=== PATIENT | female | born 1995 | race Caucasian/White ===

== ENCOUNTER 2017-03-27 19:52 | Emergency (ER) | payer OTHER ==
--- NOTE | 2017-03-27 20:24 | EDPHY ---
H & P Stated Complaint: FEELING OUT OF IT ANXIETY DOES NOT WANT TO HURT SELF, FEARFUL Time Seen by Provider: 03/27/17 20:23 HPI/ROS: CHIEF COMPLAINT: Anxiety, intermittent episodes of confusion HISTORY OF PRESENT ILLNESS: The patient has a history of bipolar mood disorder and depression currently maintained with Topamax and an SSRI. She is brought to the emergency department by her boyfriend with a chief complaint of abnormal behavior and confusion episodically over the past 6 months. The patient's boyfriend reports the patient states that she is having dream hallucinations with mild amnesia. The patient reportedly has several 2nd episodes where she stares into space and is not interactive. There has been no history of tonic- clonic seizure activity. There has been no history of incontinence. Patient is a daily marijuana user. She is also under the care of a therapist and psychiatrist. The patient's medications are prescribed by her primary care provider. The patient does endorse symptoms of anxiety earlier today. The patient does attribute her symptoms today to missing her Topamax and SSRI yesterday. She denies any suicidal or homicidal ideation. She denies additional acute complaints. REVIEW OF SYSTEMS: A comprehensive 10 point review of systems is otherwise negative aside from elements mentioned in the history of present illness. Source: Patient Exam Limitations: No limitations - Personal History LMP (Females 10-55): 1-7 Days Ago Current Tetanus/Diphtheria Vaccine: Yes Current Tetanus Diphtheria and Acellular Pertussis (TDAP): Yes - Medical/Surgical History Hx Asthma: No Hx Chronic Respiratory Disease: No Hx Diabetes: No Hx Cardiac Disease: No Hx Renal Disease: No Hx Cirrhosis: No Hx Alcoholism: No Hx HIV/AIDS: No Hx Splenectomy or Spleen Trauma: No Other PMH: prev concussion, endometriosis, wisdom teeth, bipolar, depression. - Social History Smoking Status: Never smoked - Physical Exam Exam: General Appearance: Alert, no distress Eyes: Pupils equal and round no pallor or injection ENT, Mouth: Mucous membranes moist Respiratory: There are no retractions, lungs are clear to auscultation Cardiovascular: Regular rate and rhythm Gastrointestinal: Abdomen is soft and nontender, no masses, bowel sounds normal Neurological: A&O, normal motor function, normal sensory exam, normal cranial nerves Skin: Warm and dry, no rashes Musculoskeletal: Neck is supple nontender Extremities: symmetrical, full range of motion Psychiatric: Patient is oriented X 3, there is no agitation, no suicidal ideation or homicidal ideation Constitutional: Initial Vital Signs Temperature (C) 37.1 C 03/27/17 19:56 Heart Rate 94 03/27/17 19:56 Respiratory Rate 18 03/27/17 19:56 Blood Pressure 111/57 L 03/27/17 19:56 O2 Sat (%) 97 03/27/17 19:56 O2 Delivery Mode Room Air Allergies/Adverse Reactions: Sulfa (Sulfonamide Antibiotics) Allergy (Severe, Verified 03/27/17 19:59) Hives Home Medications: Medication Instructions Recorded Topamax 07/02/16 Zoloft 25mg (*) 07/02/16 Medical Decision Making ED Course/Re-evaluation: The patient presents to the ED with abnormal behavior which has been intermittent over the past several months. I am somewhat suspicious that this is secondary to anxiety. I do feel it is reasonable to have the patient follow up with her primary care provider regarding psychiatric medications tomorrow. The patient will be given a 1 mg Ativan tablet in the ED today. Additionally, the patient will be referred to our on-call neurologist for further evaluation of her symptoms to see if they feel that EEG or additional neuro diagnostics are indicated. The patient is comfortable going home. She is able to contract for safety. She does not meet criteria for 72 hour mental health hold. Differential Diagnosis: Differential diagnosis considered includes psychosis, bipolar mood disorder, anxiety, substance abuse, partial seizures Departure - Departure Disposition: Home, Routine, Self-Care Clinical Impression: Anxiety Condition: Good Instructions: Anxiety (ED) Additional Instructions: 1. Please schedule a follow-up appointment with your primary care provider tomorrow. 2. You have been given the contact number for [facility] if you are unable to make an appointment to be seen by your regular psychiatrist. 3. Please schedule a follow-up appointment with a neurologist you have been referred to for further evaluation of your symptoms. 4. Please return to the ED if you are feeling suicidal, having severe depression, persistently abnormal behavior or other concerns. 1. Please follow-up with the mental health resources provided in the ED today. 2. [facility] does operate a 24/ psychiatric crisis unit located at [address] [place] [address]. The telephone number for the 24 hour crisis center is [phone]. 3. Please return to the ED if you are feeling suicidal, having thoughts of harming yourself/others or should you feel unsafe or have worsening symptoms. Referrals: KEN ROMAN [Other] - As per Instructions Aman Barth DO [Medical Doctor] - As per Instructions
[2017-03-27] MEDS ORDERED: LORazepam 1 MG TAB PO ONE (20:54)
[2017-03-27 21:08] VITALS: BP 116/57; PULSE 73; RESP 16; TEMP 98.1; O2SAT 96
== END 2017-03-27 21:15 | disposition home or self-care (01) ==
DX: F41.9 Anxiety disorder, unspecified (principal)